=== PATIENT | male | born 1935 ===

== ENCOUNTER 2024-04-07 09:25 | Outpatient (REF) | payer MEDICARE, SELFPAY | END 2024-04-07 09:26 | disposition home or self-care (01) | LOC: HO.SH 09:25 | PROVIDERS: Visit Provider Internal Medicine | DX: Z01.118 Encounter for examination of ears and hearing with other abnormal findings (principal); H90.3 Sensorineural hearing loss, bilateral | CPT/HCPCS: 92553; 92555 ==

== ENCOUNTER 2024-04-07 10:26 | Outpatient (REF) | payer SELFPAY ==
--- NOTE | 2024-04-07 12:46 | MHC.AU.HA3 ---
Hearing Instrument Follow-Up- Binaural Date of Visit: 04/07/24 Right Ear: Make, Model, Color, Serial Number: Madelaine Bruner S SMART III SN: [id number] Color: Black Battery Size: 312 Canvas Cutter/Slim Tube: 2xP Earmold/Dome/CShell/SlimTip:Small power dome Type of Wax Guard: CeruStop Date of Fitting: Per patient report, 12 years ago, somewhere in [place] Left Ear: Flaco, Model, Color, Serial Number: Madelaine Bruner S SMART III SN: [id number] Color: Black Battery Size: 312 Canvas Cutter/Slim Tube: 2xS Earmold/Dome/CShell/SlimTip: Small power dome Type of Wax Guard: CeruStop Date of Fitting: Per patient report, 12 years ago, somewhere in [place] Follow-Up Summary: Accompanied by son, Eric. Hearing aids about 12 years old, unsure where he purchased them. Reportedly hx of asymmetric hearing loss, purchasing one hearing aid then the other at a later date (which may account for the different strength receivers). [employer] software showed last hearing test in 2019 with right ear worse than left. Compared to today's test, left ear thresholds decreased, right relatively stable. Right hearing aid missing microphone cover and push button. Left hearing aid reportedly working its way out of ear when talking. Cleaned both hearing aids. Replaced domes and wax guards. Ran through dehumidifier. Listening check demonstrated hearing aids amplifying clearly. Was using large vented domes, switched to medium power domes to improve feedback curve and to help with security of fit. Reprogrammed to updated test. Discussed possibility of custom earmolds with new hearing aid. Adolfo and his son would like to look into pursuing new hearing aids through his [employer]erred insurance. Recommendations: Hearing instrument follow-up or maintenance as needed. Please contact our clinic with any questions or concerns. Patient will call if problems persist. Diagnosis Code(s): Primary Diagnosis: H90.3 Bilateral Sensorineural Hearing Loss Signature: Provider: Jh Quinones, [facility]
== END 2024-04-07 10:27 | disposition home or self-care (01) ==
LOC: HO.HAP 10:26
DX: Z46.1 Encounter for fitting and adjustment of hearing aid (principal); H90.3 Sensorineural hearing loss, bilateral
CPT/HCPCS: 92593